=== PATIENT | female | born 1995 | race Caucasian/White ===

== ENCOUNTER 2016-07-26 23:09 | Emergency (ER) | payer BC, OTHER ==
[2016-07-27] MEDS ORDERED: ONDANSETRON 4 MG/2 ML VIAL IVP STA (00:17)
[2016-07-27] MEDS ORDERED: ACETAMINOPHEN IV (For NPO) 1,000 MG in EMPTY BAG 1 BAG IVPB STA (00:18)
--- NOTE | 2016-07-27 00:18 | ED ---
Nausea/Vomiting/Diarrhea HPI - General Chief complaint: Nausea/Vomiting/Diarrhea Stated complaint: Dizzy Time Seen by Provider: 07/27/16 00:01 Source: patient, RN notes reviewed Mode of arrival: ambulatory Limitations: no limitations - History of Present Illness Initial comments: Patient is a 21-year-old female presents emergency room for evaluation of multiple complaints. Patient states she woke up this morning was nauseous and vomited once. Patient states since then and having lower abdominal pain with diarrhea. Patient states over the day she's been having a worsening headache. Patient does state she has a history of migraines. Patient states that she took aspirin with no relief of symptoms. Patient states she still very nauseous. Patient denies changes in vision, ringing in ears or ear pain. Patient denies neck pain. Patient denies fevers or chills. Patient denies chest pain or shortness of breath. Patient states she feels very dizzy and lightheaded whenever she stands up she feels like she is going to fall over. Patient states her last menstrual period was 07/14/16. Patient denies pain or burning during urination, trouble urinating or blood in urine. Patient denies any history of kidney stones. Patient denies any history of abdominal surgeries. - Related Data Home Medications Medication Instructions Recorded Confirmed Pnv with Ca,No.72/Iron/FA 1 tab PO DAILY 03/08/16 03/08/16 [ Plus Tablet] Previous Rx's Medication Instructions Recorded Ibuprofen [Motrin] 600 mg PO Q6HR PRN #30 tab 03/10/16 Ondansetron Odt [Zofran Odt] 4 mg PO Q8HR PRN #12 tab 07/27/16 Allergies Allergy/AdvReac Type Severity Reaction Status Date / Time amoxicillin [Amoxicillin] Allergy Anaphylaxis Verified 07/26/16 23:18 Penicillins Allergy Anaphylaxis Verified 07/26/16 23:18 Review of Systems ROS Statement: Those systems with pertinent positive or pertinent negative responses have been documented in the HPI. ROS Other: All systems not noted in ROS Statement are negative. Past Medical History Past Medical History: No Reported History Additional Past Medical History / Comment(s): Obstetric history: this is her first and she has had care with DR Terrazas starting at 33 weeks. A neg, abs neg, Rub Imm, RPR NR, Hep B neg. Rhogam given 09-18-14. History of Any Multi-Drug Resistant Organisms: None Reported Past Surgical History: No Surgical Hx Reported Past Anesthesia/Blood Transfusion Reactions: No Reported Reaction Past Psychological History: No Psychological Hx Reported Smoking Status: Never smoker Past Alcohol Use History: None Reported Past Drug Use History: None Reported - Past Family History Mother Family Medical History: COPD Additional Family Medical History / Comment(s): fibromyalgia General Exam - General Exam Comments Initial Comments: Laying in exam room, no acute distress. Limitations: no limitations General appearance: alert, in no apparent distress Head exam: Present: atraumatic, normocephalic, normal inspection Eye exam: Present: normal appearance ENT exam: Present: normal exam Neck exam: Present: normal inspection Respiratory exam: Present: normal lung sounds bilaterally. Absent: respiratory distress Cardiovascular Exam: Present: regular rate, normal rhythm, normal heart sounds GI/Abdominal exam: Present: soft, tenderness (LLQ), normal bowel sounds. Absent : distended, guarding, rebound, rigid Extremities exam: Present: normal inspection Back exam: Present: normal inspection Neurological exam: Present: alert, oriented X3, CN II-XII intact, normal gait Psychiatric exam: Present: normal affect, normal mood Skin exam: Present: warm, dry, intact, normal color. Absent: rash Course Vital Signs 07/26/16 07/27/16 07/27/16 23:14 00:53 02:28 Temperature 98.6 F 98.5 F 96.7 F L Pulse Rate 97 97 73 Respiratory 18 20 18 Rate Blood Pressure 119/73 106/67 125/72 O2 Sat by Pulse 99 98 Oximetry Medical Decision Making - Medical Decision Making Patient is a 21-year-old female since emergency room for evaluation nausea and vomiting. Labs show no acute findings. Patient states she is feeling better after medications given. Agreed to send patient home with antinausea medication advised to follow-up with her primary care provider. Patient states she understands everything that was discussed with her. Return parameters discussed. Case discussed with Dr. Gonzalez. - Lab Data Result diagrams: 07/27/16 01:00 07/27/16 01:00 Lab Results 07/27/16 07/27/16 07/27/16 Range/Units 01:00 01:00 01:00 WBC 5.0 (3.8-10.6) k/uL RBC 4.93 (3.80-5.40) m/uL Hgb 12.6 (11.4-16.0) gm/dL Hct 39.6 (34.0-46.0) % MCV 80.3 (80.0-100.0) fL MCH 25.5 (25.0-35.0) pg MCHC 31.8 (31.0-37.0) g/dL RDW 14.4 (11.5-15.5) % Plt Count 185 (150-450) k/uL Neutrophils % 68 % Lymphocytes % 26 % Monocytes % 4 % Eosinophils % 0 % Basophils % 0 % Neutrophils # 3.4 (1.3-7.7) k/uL Lymphocytes # 1.3 (1.0-4.8) k/uL Monocytes # 0.2 (0-1.0) k/uL Eosinophils # 0.0 (0-0.7) k/uL Basophils # 0.0 (0-0.2) k/uL Sodium 141 (137-145) mmol/L Potassium 3.9 (3.5-5.1) mmol/L Chloride 106 (98-107) mmol/L Carbon Dioxide 23 (22-30) mmol/L Anion Gap 12 mmol/L BUN 13 (7-17) mg/dL Creatinine 0.70 (0.52-1.04) mg/dL Est GFR (MDRD) Af Amer >60 (>60 ml/min/1.73 sqM) Est GFR (MDRD) Non-Af >60 (>60 ml/min/1.73 sqM) Glucose 97 (74-99) mg/dL Calcium 9.2 (8.4-10.2) mg/dL Total Bilirubin 0.5 (0.2-1.3) mg/dL AST 19 (14-36) U/L ALT 31 (9-52) U/L Alkaline Phosphatase 41 (38-126) U/L Total Protein 7.2 (6.3-8.2) g/dL Albumin 4.3 (3.5-5.0) g/dL Amylase 53 (30-110) U/L Lipase 142 (23-300) U/L Urine Color Yellow Urine Appearance Clear (Clear) Urine pH 6.0 (5.0-8.0) Ur Specific [place] 1.023 (1.001-1.035) Urine Protein Negative (Negative) Urine Glucose (UA) Negative (Negative) Urine Ketones Negative (Negative) Urine Blood Negative (Negative) Urine Nitrate Negative (Negative) Urine Bilirubin Negative (Negative) Urine Urobilinogen <2.0 (<2.0) mg/dL Ur Leukocyte Esterase Negative (Negative) Urine HCG, Qual (Not Detectd) 07/27/16 Range/Units 01:00 WBC (3.8-10.6) k/uL RBC (3.80-5.40) m/uL Hgb (11.4-16.0) gm/dL Hct (34.0-46.0) % MCV (80.0-100.0) fL MCH (25.0-35.0) pg MCHC (31.0-37.0) g/dL RDW (11.5-15.5) % Plt Count (150-450) k/uL Neutrophils % % Lymphocytes % % Monocytes % % Eosinophils % % Basophils % % Neutrophils # (1.3-7.7) k/uL Lymphocytes # (1.0-4.8) k/uL Monocytes # (0-1.0) k/uL Eosinophils # (0-0.7) k/uL Basophils # (0-0.2) k/uL Sodium (137-145) mmol/L Potassium (3.5-5.1) mmol/L Chloride (98-107) mmol/L Carbon Dioxide (22-30) mmol/L Anion Gap mmol/L BUN (7-17) mg/dL Creatinine (0.52-1.04) mg/dL Est GFR (MDRD) Af Amer (>60 ml/min/1.73 sqM) Est GFR (MDRD) Non-Af (>60 ml/min/1.73 sqM) Glucose (74-99) mg/dL Calcium (8.4-10.2) mg/dL Total Bilirubin (0.2-1.3) mg/dL AST (14-36) U/L ALT (9-52) U/L Alkaline Phosphatase (38-126) U/L Total Protein (6.3-8.2) g/dL Albumin (3.5-5.0) g/dL Amylase (30-110) U/L Lipase (23-300) U/L Urine Color Urine Appearance (Clear) Urine pH (5.0-8.0) Ur Specific [place] (1.001-1.035) Urine Protein (Negative) Urine Glucose (UA) (Negative) Urine Ketones (Negative) Urine Blood (Negative) Urine Nitrate (Negative) Urine Bilirubin (Negative) Urine Urobilinogen (<2.0) mg/dL Ur Leukocyte Esterase (Negative) Urine HCG, Qual Not Detected (Not Detectd) Disposition Clinical Impression: Nausea & vomiting Disposition: HOME SELF-CARE Condition: Good Instructions: Acute Nausea and Vomiting (ED) Additional Instructions: Take Zofran as needed for nausea. Take Tylenol or Motrin as if her headache. Drink plenty of fluids. Please follow up with primary care provider in 1-2 days. If any new symptom arises, symptoms worsen or fever develops, return to ER as soon as possible. Prescriptions: Ondansetron Odt [Zofran Odt] 4 mg PO Q8HR PRN #12 tab PRN Reason: Nausea Referrals: Nader Paula MD [Primary Care Provider] - 1-2 days Time of Disposition: 01:58
[2016-07-27] MEDS: SODIUM CHLORIDE 0.9% 1,000 ML IV ONE ×2 (00:41→00:47)
[2016-07-27 01:13] LABS: Appearance,Urine Clear (Clear); Basophils % (A) 0 %; Bilirubin,Urine Negative (Negative); CH 26.6; CHCM 33.2; Eosinophils % (A) 0 %; Glucose,Urine (UA) Negative (Negative); HCT 39.6 % (34.0-46.0); HDW 2.55; HGB 12.6 gm/dL (11.4-16.0); Ketones,Urine Negative (Negative); Leukocyte Esterase,Urine Negative (Negative); Luc # (Auto) 0.07; Luc % (Auto) 1; Lymphocytes # (A) 1.3 k/uL (1.0-4.8); Lymphocytes % (A) 26 %; MCH 25.5 pg (25.0-35.0); MCHC 31.8 g/dL (31.0-37.0); MCV 80.3 fL (80.0-100.0); Mean Platelet Volume 8.5; Monocytes # (A) 0.2 k/uL (0-1.0); Monocytes % (A) 4 %; Neutrophils # (A) 3.4 k/uL (1.3-7.7); Neutrophils % (A) 68 %; Nitrite,Urine Negative (Negative); Protein,Urine Negative (Negative); RBC 4.93 m/uL (3.80-5.40); RDW 14.4 % (11.5-15.5); Specific Gravity,Urine 1.023 (1.001-1.035); UA Billing (MACRO vs. MICRO) CHEM; Urobilinogen,Urine <2.0 mg/dL (<2.0); WBC (Perox) 5.16
[2016-07-27 01:22] LABS: ALT 31 U/L (9-52); AST 19 U/L (14-36); Alkaline Phosphatase 41 U/L (38-126); Amylase 53 U/L (30-110); Anion Gap 12 mmol/L; Blood Urea Nitrogen 13 mg/dL (7-17); Calcium 9.2 mg/dL (8.4-10.2); Carbon Dioxide 23 mmol/L (22-30); Chloride 106 mmol/L (98-107); Glucose 97 mg/dL (74-99); Non-African American GFR(MDRD) >60 (>60 ml/min/1.73 sqM); Potassium 3.9 mmol/L (3.5-5.1); Sodium 141 mmol/L (137-145); Total Bilirubin 0.5 mg/dL (0.2-1.3); Total Protein 7.2 g/dL (6.3-8.2)
[2016-07-27] MEDS ORDERED: KETOROLAC 30 MG/ML 1 ML VIAL IVP STA (02:01)
[2016-07-27 02:31] VITALS: BP 125/72; PULSE 73; RESP 18; TEMP 96.7
== END 2016-07-27 02:32 | disposition home or self-care (01) ==
LOC: EC 23:09
DX: R11.2 Nausea with vomiting, unspecified (principal); R10.30 Lower abdominal pain, unspecified; Z88.0 Allergy status to penicillin; Z88.1 Allergy status to other antibiotic agents
CPT/HCPCS: 99284; 96365; 96375 ×2; 96361; 36415; 80053; 82150; 83690; 85025; 81003; 81025; J2405; J1885; J0131

== ENCOUNTER → 2017-01-09 | Outpatient (CLI) | payer BC, OTHER ==
[2017-01-09 10:25] LABS: Glucose 68 mg/dL (74-99); Non-African American GFR(MDRD) >60 (>60 ml/min/1.73 sqM)
[2017-01-09 10:57] LABS: Hepatitis B Surface Ag Index 0.04
[2017-01-09 11:24] LABS: CH 28.5; CHCM 33.6; HDW 2.62; MCH 28.4 pg (25.0-35.0); MCHC 33.3 g/dL (31.0-37.0); MCV 85.2 fL (80.0-100.0); Mean Platelet Volume 8.1; RBC 4.22 m/uL (3.80-5.40); RDW 14.3 % (11.5-15.5); WBC 4.6 k/uL (3.8-10.6)
== END | disposition home or self-care (01) ==
LOC: LABWHC1 09:19
PROVIDERS: ATTEND Obstetrics & Gynecology
DX: Z34.80 Encounter for supervision of other normal pregnancy, unspecified trimester (principal); Z3A.00 Weeks of gestation of pregnancy not specified
CPT/HCPCS: 36415; 82565; 82947; 85027; 86762; 86780; 86850; 86900; 86901; 87340

== ENCOUNTER → 2017-02-03 | Outpatient (CLI) | payer BC, OTHER ==
[2017-02-05 09:54] LABS: Alpha Fetoprotein 46.7 ng/mL; B-HCG (M.O.M.) 1.36; Gestational Age (days) 4; Human Chorionic Gonadotropin 44.7 IU/mL; Inhibin A (M.O.M.) 0.49; Insulin-Dependent Diabetes Diabetic; Interpretation SeeBelow; Maternal Age at EDD (Yrs) 22; Smoker No; Unconjugated Estriol (M.O.M.) 1.22
== END | disposition home or self-care (01) ==
LOC: LABWHC1 08:53
PROVIDERS: ATTEND Obstetrics & Gynecology
DX: Z34.82 Encounter for supervision of other normal pregnancy, second trimester (principal); Z3A.00 Weeks of gestation of pregnancy not specified
CPT/HCPCS: 36415; 82105; 82677; 84702; 86336

== ENCOUNTER 2017-03-19 18:49 | Outpatient (CLI) | payer BC, OTHER ==
[2017-03-19 22:46] VITALS: PULSE 96; RESP 18; TEMP 98.2
--- NOTE | 2017-03-20 08:26 | P.MSEPDOC ---
Presenting Problems - Arrival Data Date of Arrival on Unit: 03/19/17 Time of Arrival on Unit: 18:49 Mode of Transport: Ambulatory - Complaint OB-Reason for Admission/Chief Complaint: Pain Comment: gi upset after eating pizza last night. Medical History - Information : 3 Para: 2 Term: 2 : 0 Abortions: Spontaneous or Elective: 0 Number of Living Children: 2 - Gestational Age Expected Date of Delivery: 07/10/17 Gestational Age by TONIA (wks/days): 24 Weeks and 0 Days Review of Systems - Review of Systems Constitutional: No problems Breast: No problems ENT: No problems Cardiovascular: No problems Respiratory: No problems Gastrointestinal: Pain Genitourinary: No problems Musculoskeletal: No problems Skin: No problems Vital Signs - Temperature Temperature: 98.2 F Temperature Source: Oral - Pulse Right Pulse Oximetery Pulse Rate: 96 Pulse Assessment Method: Pulse Oximetry - Respirations Respiratory Rate: 18 Oxygen Delivery Method: Room Air Medical Screen Scoring (Pre) - Cervical Exam Dilation: 0 cm = 0 - Uterine Contractions Frequency: N/A - Maternal Vital Signs Maternal Temperature: N/A Signs of Preeclampsia: N/A Maternal Respirations: N/A - Maternal Trauma Maternal Trauma: N/A - Assessment Baseline FHR: 145 Position: N/A, Non-vertex & not laboring = 3 - Total Score Total Score (Pre): 3 - Level of Risk Level of Risk: Low (0-5) Physician Notification (Pre) - Physician Notified Physician Notified Date: 03/19/17 Physician Notified Time: 20:20 Physician/Practitioner Notifed:: reagan Montoya Order Received: Yes (discharge after ffn and vag exam) Disposition - Disposition OB Disposition: Discharge to home Discharge Date: 03/19/17 Discharge Time: 20:50 I agree with the RN Medical Screening Exam: Yes Risk & Benefit of care provided described in d/c instruction: Yes Diagnosis: FALSE LABOR BEFORE 37 COMPLETED WEEKS OF GEST, SECOND TRI
== END 2017-03-19 20:50 | disposition home or self-care (01) ==
LOC: FBPOP 18:49
PROVIDERS: ATTEND Obstetrics & Gynecology
DX: O47.03 False labor before 37 completed weeks of gestation, third trimester (principal); Z3A.24 24 weeks gestation of pregnancy
CPT/HCPCS: 82731; 99213

== ENCOUNTER → 2017-04-02 | Outpatient (CLI) | payer BC, OTHER ==
[2017-04-02 16:28] LABS: CH 29.6; CHCM 35.2; HCT 35.8 % (34.0-46.0); HGB 12.3 gm/dL (11.4-16.0); MCH 29.1 pg (25.0-35.0); MCHC 34.4 g/dL (31.0-37.0); MCV 84.7 fL (80.0-100.0); Mean Platelet Volume 8.4; RBC 4.23 m/uL (3.80-5.40); RDW 14.2 % (11.5-15.5); WBC 5.9 k/uL (3.8-10.6)
== END | disposition home or self-care (01) ==
LOC: LABWHC1 14:42
PROVIDERS: ATTEND Obstetrics & Gynecology
DX: Z34.82 Encounter for supervision of other normal pregnancy, second trimester (principal); Z3A.00 Weeks of gestation of pregnancy not specified
CPT/HCPCS: 36415; 82950; 85027; 86850

== ENCOUNTER 2017-07-29 06:15 | Emergency (ER) | payer BC, OTHER ==
[2017-07-29 06:38] VITALS: BP 125/81; PULSE 104; RESP 18; TEMP 98.3
--- NOTE | 2017-07-29 07:28 | ED ---
General Adult HPI - General Chief complaint: ENT Stated complaint: right ear pain Time Seen by Provider: 07/29/17 07:22 Source: patient, family, RN notes reviewed Mode of arrival: ambulatory Limitations: no limitations - History of Present Illness Initial comments: Patient is a pleasant 22-year-old female presenting to the emergency department complaining of right ear pain. Symptoms have been present 3 or 4 days. Patient has mild clear rhinorrhea. Occasional cough. No history of chronic ear pain. No fevers. Patient hears popping in her ear with swallowing. - Related Data Previous Rx's Medication Instructions Recorded Azithromycin [Zithromax Z-pack] 250 mg PO DIRECTED #6 tab 07/29/17 Allergies Allergy/AdvReac Type Severity Reaction Status Date / Time amoxicillin [Amoxicillin] Allergy Anaphylaxis Verified 07/29/17 06:38 Penicillins Allergy Anaphylaxis Verified 07/29/17 06:38 Review of Systems ROS Statement: Those systems with pertinent positive or pertinent negative responses have been documented in the HPI. ROS Other: All systems not noted in ROS Statement are negative. Constitutional: Denies: fever Eyes: Denies: eye pain ENT: Reports: ear pain. Denies: throat pain Respiratory: Denies: dyspnea Cardiovascular: Denies: chest pain Endocrine: Denies: fatigue Gastrointestinal: Denies: abdominal pain Genitourinary: Denies: dysuria Musculoskeletal: Denies: back pain Skin: Denies: rash Neurological: Denies: weakness Past Medical History Past Medical History: No Reported History Additional Past Medical History / Comment(s): Obstetric history: this is her first and she has had care with DR Terrazas starting at 33 weeks. A neg, abs neg, Rub Imm, RPR NR, Hep B neg. Rhogam given 09-18-14. History of Any Multi-Drug Resistant Organisms: None Reported Past Surgical History: No Surgical Hx Reported Past Anesthesia/Blood Transfusion Reactions: No Reported Reaction Past Psychological History: No Psychological Hx Reported Smoking Status: Never smoker Past Alcohol Use History: None Reported Past Drug Use History: None Reported - Past Family History Mother Family Medical History: COPD Additional Family Medical History / Comment(s): fibromyalgia General Exam Limitations: no limitations General appearance: alert, in no apparent distress Head exam: Present: atraumatic Eye exam: Present: normal appearance, PERRL ENT exam: Present: normal oropharynx, other (Right TM bulging and mild erythema. No tenderness over the sinuses.) Neck exam: Present: normal inspection Respiratory exam: Present: normal lung sounds bilaterally Cardiovascular Exam: Present: regular rate, normal rhythm Extremities exam: Present: normal inspection Neurological exam: Present: alert Psychiatric exam: Present: normal affect, normal mood Skin exam: Present: normal color Course Vital Signs 07/29/17 06:35 Temperature 98.3 F Pulse Rate 104 H Respiratory 18 Rate Blood Pressure 125/81 O2 Sat by Pulse 97 Oximetry Disposition Clinical Impression: Right otitis media Disposition: HOME SELF-CARE Condition: Stable Instructions: Otitis Media (ED) Additional Instructions: [id number] Tylenol or Motrin as needed. You may also try over-the- counter decongestants. Please follow-up with primary care physician in the next couple days for recheck. Return for hearing loss, bleeding, fevers, worsening symptoms or other concerns. Prescriptions: Azithromycin [Zithromax Z-pack] 250 mg PO DIRECTED #6 tab Referrals: Nader Paula MD [Primary Care Provider] - 1-2 days Time of Disposition: 07:28
== END 2017-07-29 07:30 | disposition home or self-care (01) ==
LOC: EC 06:15
DX: H66.91 Otitis media, unspecified, right ear (principal); R05 Cough; J34.89 Other specified disorders of nose and nasal sinuses; Z88.0 Allergy status to penicillin
CPT/HCPCS: 99282

== ENCOUNTER 2018-09-01 16:57 | Emergency (ER) | payer OTHER ==
[2018-09-01 17:06] VITALS: RESP 18
[2018-09-01 18:29] LABS: Amphetamine Screen,Urine Not Detected (NotDetected); Barbiturate Screen,Urine Not Detected (NotDetected); Benzodiazepines Screen,Urine Not Detected (NotDetected); Cocaine Screen,Urine Not Detected (NotDetected); Methadone Screen, Urine Not Detected (NotDetected); Opiate Screen,Urine Not Detected (NotDetected); Oxycodone Screen, Urine Not Detected (NotDetected); Phencyclidine Screen,Urine Not Detected (NotDetected); Tricyclic Antidepressant,Urine Not Detected (NotDetected); Urn Cannabinoid Scrn Not Detected (NotDetected)
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
[2018-09-01 20:58] VITALS: BP 127/80; PULSE 100; TEMP 98
== END 2018-09-01 20:58 | disposition home or self-care (01) ==
LOC: EC 16:57
DX: F43.21 Adjustment disorder with depressed mood (principal); R45.851 Suicidal ideations; Z79.899 Other long term (current) drug therapy; Z88.0 Allergy status to penicillin
CPT/HCPCS: 80306; 82075; 99285

== ENCOUNTER 2018-11-10 18:57 | Emergency (ER) | payer OTHER ==
[2018-11-10 19:04] VITALS: RESP 18; TEMP 97.5
--- NOTE | 2018-11-10 19:35 | XR ---
EXAMINATION TYPE: XR chest 2V DATE OF EXAM: 11/10/2018 COMPARISON: January 21, 2014 HISTORY: Sore throat TECHNIQUE: Frontal and lateral views of the chest are obtained. FINDINGS: Heart and mediastinum are normal. Lungs are clear. Diaphragm is normal. Bony thorax appear s normal. IMPRESSION: Normal chest. No change.
[2018-11-10] MEDS ORDERED: AZITHROMYCIN 500 MG TAB PO STA (19:48)
--- NOTE | 2018-11-10 19:54 | ED ---
General Adult HPI - General Chief complaint: ENT Stated complaint: Sore throat Time Seen by Provider: 11/10/18 19:00 Source: patient, RN notes reviewed Mode of arrival: ambulatory Limitations: no limitations - History of Present Illness Initial comments: 23-year-old female without any significant past medical history presents to the emergency department for cold symptoms. Patient has had a cough, ear pain, and congestion for the past 3 days. Patient also lost her voice yesterday. Patient denies chest pain or shortness of breath. She does admit that she has some pain along her left shoulder blade when she coughs. Patient did take Mucinex prior to arrival. Patient denies history of asthma or smoking history. States she felt febrile yesterday. Patient has no other complaints at this time including shortness of breath, chest pain, abdominal pain, nausea or vomiting, headache, or visual changes. - Related Data Home Medications Medication Instructions Recorded Confirmed Dextroamphetamine/Amphetamine 20 mg PO DAILY 09/01/18 09/01/18 [Adderall Xr] Previous Rx's Medication Instructions Recorded Azithromycin 250 mg PO DAILY 4 Days #4 tab 11/10/18 Allergies Allergy/AdvReac Type Severity Reaction Status Date / Time amoxicillin [Amoxicillin] Allergy Anaphylaxis Verified 11/10/18 19:01 Penicillins Allergy Anaphylaxis Verified 11/10/18 19:01 Review of Systems ROS Statement: Those systems with pertinent positive or pertinent negative responses have been documented in the HPI. ROS Other: All systems not noted in ROS Statement are negative. Past Medical History Past Medical History: No Reported History Additional Past Medical History / Comment(s): Obstetric history: this is her first and she has had care with DR Terrazas starting at 33 weeks. A neg, abs neg, Rub Imm, RPR NR, Hep B neg. Rhogam given 09-18-14. History of Any Multi-Drug Resistant Organisms: None Reported Past Surgical History: No Surgical Hx Reported Past Anesthesia/Blood Transfusion Reactions: No Reported Reaction Past Psychological History: No Psychological Hx Reported Smoking Status: Never smoker Past Alcohol Use History: None Reported Past Drug Use History: None Reported - Past Family History Mother Family Medical History: COPD Additional Family Medical History / Comment(s): fibromyalgia General Exam Limitations: no limitations General appearance: alert, in no apparent distress Head exam: Present: atraumatic, normocephalic, normal inspection Eye exam: Present: normal appearance, PERRL, EOMI. Absent: scleral icterus, conjunctival injection, periorbital swelling ENT exam: Present: normal exam, mucous membranes moist, normal external ear exam. Absent: normal oropharynx (post nasal drip noted, uvula midline, no tonsillar exudates), TM's normal bilaterally (Right tympanic membranes erythematous and bulging without evidence of perforation. Left tympanic membrane is within normal limits.), other (no tenderness on palpatin of maxiallay or frontal sinuses) Neck exam: Present: normal inspection, full ROM. Absent: tenderness, meningismus, lymphadenopathy Respiratory exam: Present: normal lung sounds bilaterally. Absent: respiratory distress, wheezes, rales, rhonchi, stridor Cardiovascular Exam: Present: regular rate, normal rhythm, normal heart sounds. Absent: systolic murmur, diastolic murmur, rubs, gallop, clicks Neurological exam: Present: alert, oriented X3, CN II-XII intact Psychiatric exam: Present: normal affect, normal mood Course Vital Signs 11/10/18 11/10/18 19:01 19:54 Temperature 97.5 F L Pulse Rate 102 H 95 Respiratory 18 18 Rate Blood Pressure 106/68 114/89 O2 Sat by Pulse 99 98 Oximetry Medical Decision Making - Medical Decision Making 23-year-old well-appearing and healthy female presents to the emergency department for a chief complaint of cough congestion sore throat and ear pain 3 days. No history of asthma or smoking. No shortness of breath or chest pain. Oropharynx nonerythematous, uvula midline, no tonsillar exudates noted bilaterally. Right TM Membrane does appear erythematous and bulging, patient does admit she frequently gets ear infections in the right ear. Patient is ALLERGIC to penicillin, was a started on azithromycin. Patient complaining of some pain in the left shoulder blade only when coughing. This is reproducible on exam. Likely chest wall irritation from coughing given reproducibility with palpation Chest x-ray negative for pneumonia. Influenza is negative. At this t [facility], [facility] patient will be treated for right otitis media. Patient given azithromycin here in the emergency Department if she is ALLERGIC to penicillin and prescription given. Patient also has laryngitis from coughing has her voice is coarse. She will return here she has any worsening symptoms. - Lab Data Lab Results 11/10/18 Range/Units 19:14 Influenza Type A RNA Not Detected (Not Detectd) Influenza Type B (PCR) Not Detected (Not Detectd) Disposition Clinical Impression: Otitis media, Upper respiratory infection Disposition: HOME SELF-CARE Condition: Good Instructions (If sedation given, give patient instructions): Ear Infection (ED), Upper Respiratory Infection (ED) Additional Instructions: Please take azithromycin as directed. Please follow-up with primary care in 1-2 days. Please return to the emergency department if you have any worsening symptoms. Prescriptions: Azithromycin 250 mg PO DAILY 4 Days #4 tab Is patient prescribed a controlled substance at d/c from ED?: No Referrals: Nader Paula MD [Primary Care Provider] - 1-2 days Time of Disposition: 19:52
[2018-11-10 19:55] VITALS: BP 114/89; PULSE 95
== END 2018-11-10 20:11 | disposition home or self-care (01) ==
LOC: EC 18:57
DX: J06.9 Acute upper respiratory infection, unspecified (principal); H66.91 Otitis media, unspecified, right ear; M25.512 Pain in left shoulder; Z79.899 Other long term (current) drug therapy; Z88.0 Allergy status to penicillin
CPT/HCPCS: 71046; 87502; 99283

== ENCOUNTER 2019-02-26 21:00 | Emergency (ER) | payer OTHER ==
[2019-02-26 21:08] VITALS: TEMP 98.4
--- NOTE | 2019-02-26 21:29 | ED ---
General Adult HPI - General Chief complaint: Urogenital Stated complaint: kidney pain/poss UTI Time Seen by Provider: 02/26/19 21:06 Source: patient Mode of arrival: ambulatory Limitations: no limitations - History of Present Illness Initial comments: Dictation was produced using G[employer] dictation software. please excuse any grammatical, word or spelling errors. Chief Complaint: Patient is a 23-year-old femalepast medical history presents with right flank pain and right lower quadrant abdominal pain. History of Present Illness: Patient's 23-year-old female presents today with right lower quadrant abdominal and right flank pain. Patient states she's had these symptoms for approximate 7 weeks. Patient noticed that her urine is slightly brownish tinged. She does complain of some mild dysuria. She believes that she has a urinary tract infection. Patient has intrauterine device. She denies any chance of being . Denies any fevers or complaints of some mild nausea. She states that her symptoms got worse today. At first it was slight episodic now it is constant and more severe. Denies any constitutional symptoms. Denies that her pain was never in the periumbilical region. Patient denies any history of kidney stones. Denies any history of abdominal surgery. No vaginal discharge or vaginal bleeding. The ROS documented in this emergency department record has been reviewed and confirmed by me. Those systems with pertinent positive or negative responses have been documented in the HPI. All other systems are other negative and/or noncontributory. PHYSICAL EXAM: General Impression: Alert and oriented x3, not in acute distress HEENT: Normocephalic atraumatic, extra-ocular movements intact, pupils equal and reactive to light bilaterally, mucous membranes moist. Cardiovascular: Heart regular rate and rhythm, S1&S2 audible, no murmurs, rubs or gallops Chest: Lungs clear to auscultation bilaterally, no rhonchi, no wheeze, no rales Abdomen: Bowel sounds present, abdomen soft, tenderness to palpation of McBurney's point, referred pain to the right lower quadrant with palpation to th e left, positive CVA tenderness Musculoskeletal: Pulses present and equal in all extremities, no peripheral edema Motor: no focal deficits noted Neurological: CN II-XII grossly intact, no focal motor or sensory deficits noted Skin: Intact with no visualized rashes Psych: Normal affect and mood ED course:23 yo Old female presents with right-sided flank pain and right lower quadrant abdominal pain. As upon arrival are within acceptable limits. Patient's well-appearing. Physical examination is concerning for nephrolithiasis versus pyelonephritis versus is ovarian torsion versus is acute appendicitis. Lab to evaluation obtained. CBC, metabolic panel unremarkable. Urinalysis consistent with urinary tract infection CT does not show appendicitis. No large ovarian mass. No findings of pyelonephritis on CT imaging. Clinical presentation consistent with urinary tract infection concern for pyelonephritis. She is given 1 g of ceftriaxone here. Patient prescription for Keflex. She is well-appearing and has stable vital signs. She is able to be discharged with strict return precautions. Patient told to return to emergency Department with any constitutional symptoms or worsening pain. Patient understandable agreeable. - Related Data Home Medications Medication Instructions Recorded Confirmed Dextroamphetamine/Amphetamine 20 mg PO DAILY 09/01/18 02/26/19 [Adderall Xr] Previous Rx's Medication Instructions Recorded Cephalexin [Keflex] 500 mg PO Q6HR 10 Days #40 cap 02/26/19 Allergies Allergy/AdvReac Type Severity Reaction Status Date / Time amoxicillin [Amoxicillin] Allergy Anaphylaxis Verified 02/26/19 21:41 Penicillins Allergy Anaphylaxis Verified 02/26/19 21:41 Review of Systems ROS Statement: Those systems with pertinent positive or pertinent negative responses have been documented in the HPI. ROS Other: All systems not noted in ROS Statement are negative. Past Medical History Past Medical History: No Reported History Additional Past Medical History / Comment(s): Obstetric history: this is her first and she has had care with DR Terrazas starting at 33 weeks. A neg, abs neg, Rub Imm, RPR NR, Hep B neg. Rhogam given 09-18-14. History of Any Multi-Drug Resistant Organisms: None Reported Past Surgical History: No Surgical Hx Reported Past Anesthesia/Blood Transfusion Reactions: No Reported Reaction Past Psychological History: No Psychological Hx Reported Smoking Status: Never smoker Past Alcohol Use History: None Reported Past Drug Use History: None Reported - Past Family History Mother Family Medical History: COPD Additional Family Medical History / Comment(s): fibromyalgia General Exam Limitations: no limitations Course Vital Signs 02/26/19 21:05 Temperature 98.4 F Pulse Rate 77 Respiratory 18 Rate Blood Pressure 106/74 O2 Sat by Pulse 99 Oximetry Medical Decision Making - Lab Data Result diagrams: 02/26/19 21:26 02/26/19 21:26 Lab Results 02/26/19 02/26/19 02/26/19 Range/Units 21:26 21:26 21:45 WBC 5.9 (3.8-10.6) k/uL RBC 4.67 (3.80-5.40) m/uL Hgb 13.6 (11.4-16.0) gm/dL Hct 40.0 (34.0-46.0) % MCV 85.6 (80.0-100.0) fL MCH 29.2 (25.0-35.0) pg MCHC 34.1 (31.0-37.0) g/dL RDW 12.8 (11.5-15.5) % Plt Count 229 (150-450) k/uL Neutrophils % 57 % Lymphocytes % 32 % Monocytes % 6 % Eosinophils % 4 % Basophils % 0 % Neutrophils # 3.4 (1.3-7.7) k/uL Lymphocytes # 1.9 (1.0-4.8) k/uL Monocytes # 0.4 (0-1.0) k/uL Eosinophils # 0.2 (0-0.7) k/uL Basophils # 0.0 (0-0.2) k/uL Sodium 141 (137-145) mmol/L Potassium 4.1 (3.5-5.1) mmol/L Chloride 105 (98-107) mmol/L Carbon Dioxide 26 (22-30) mmol/L Anion Gap 10 mmol/L BUN 14 (7-17) mg/dL Creatinine 0.68 (0.52-1.04) mg/dL Est GFR (CKD-EPI)AfAm >90 (>60 ml/min/1.73 sqM) Est GFR (CKD-EPI)NonAf >90 (>60 ml/min/1.73 sqM) Glucose 90 (74-99) mg/dL Calcium 9.5 (8.4-10.2) mg/dL Urine Color Urine Appearance (Clear) Urine pH (5.0-8.0) Ur Specific [place] (1.001-1.035) Urine Protein (Negative) Urine Glucose (UA) (Negative) Urine Ketones (Negative) Urine Blood (Negative) Urine Nitrite (Negative) Urine Bilirubin (Negative) Urine Urobilinogen (<2.0) mg/dL Ur Leukocyte Esterase (Negative) Urine RBC (0-5) /hpf Urine WBC (0-5) /hpf Ur Squamous Epith Cells (0-4) /hpf Urine Mucus (None) /hpf Urine HCG, Qual Not Detected (Not Detectd) 02/26/19 Range/Units 21:45 WBC (3.8-10.6) k/uL RBC (3.80-5.40) m/uL Hgb (11.4-16.0) gm/dL Hct (34.0-46.0) % MCV (80.0-100.0) fL MCH (25.0-35.0) pg MCHC (31.0-37.0) g/dL RDW (11.5-15.5) % Plt Count (150-450) k/uL Neutrophils % % Lymphocytes % % Monocytes % % Eosinophils % % Basophils % % Neutrophils # (1.3-7.7) k/uL Lymphocytes # (1.0-4.8) k/uL Monocytes # (0-1.0) k/uL Eosinophils # (0-0.7) k/uL Basophils # (0-0.2) k/uL Sodium (137-145) mmol/L Potassium (3.5-5.1) mmol/L Chloride (98-107) mmol/L Carbon Dioxide (22-30) mmol/L Anion Gap mmol/L BUN (7-17) mg/dL Creatinine (0.52-1.04) mg/dL Est GFR (CKD-EPI)AfAm (>60 ml/min/1.73 sqM) Est GFR (CKD-EPI)NonAf (>60 ml/min/1.73 sqM) Glucose (74-99) mg/dL Calcium (8.4-10.2) mg/dL Urine Color Yellow Urine Appearance Cloudy H (Clear) Urine pH 6.0 (5.0-8.0) Ur Specific [place] 1.016 (1.001-1.035) Urine Protein Trace H (Negative) Urine Glucose (UA) Negative (Negative) Urine Ketones Negative (Negative) Urine Blood Trace H (Negative) Urine Nitrite Negative (Negative) Urine Bilirubin Negative (Negative) Urine Urobilinogen <2.0 (<2.0) mg/dL Ur Leukocyte Esterase Large H (Negative) Urine RBC 5 (0-5) /hpf Urine WBC 116 H (0-5) /hpf Ur Squamous Epith Cells 3 (0-4) /hpf Urine Mucus Rare H (None) /hpf Urine HCG, Qual (Not Detectd) Disposition Clinical Impression: Pyelonephritis Disposition: HOME SELF-CARE Condition: Good Instructions (If sedation given, give patient instructions): Urinary Tract Infection in Women (ED) Prescriptions: Cephalexin [Keflex] 500 mg PO Q6HR 10 Days #40 cap Is patient prescribed a controlled substance at d/c from ED?: No Referrals: Nader Paula MD [Primary Care Provider] - 1-2 days Time of Disposition: 23:25
[2019-02-26 21:46] LABS: Basophils % (A) 0 %; Eosinophils # (A) 0.2 k/uL (0-0.7); Eosinophils % (A) 4 %; HGB 13.6 gm/dL (11.4-16.0); Lymphocytes # (A) 1.9 k/uL (1.0-4.8); Lymphocytes % (A) 32 %; MCH 29.2 pg (25.0-35.0); MCHC 34.1 g/dL (31.0-37.0); MCV 85.6 fL (80.0-100.0); Mean Platelet Volume 7.6; Monocytes # (A) 0.4 k/uL (0-1.0); Monocytes % (A) 6 %; Neutrophils # (A) 3.4 k/uL (1.3-7.7); Neutrophils % (A) 57 %; Platelet Count 229 k/uL (150-450); RBC 4.67 m/uL (3.80-5.40); RDW 12.8 % (11.5-15.5); WBC 5.9 k/uL (3.8-10.6)
[2019-02-26 21:53] LABS: African American GFR (CKD) >90 (>60 ml/min/1.73 sqM); Anion Gap 10 mmol/L; Blood Urea Nitrogen 14 mg/dL (7-17); Calcium 9.5 mg/dL (8.4-10.2); Carbon Dioxide 26 mmol/L (22-30); Chloride 105 mmol/L (98-107); Glucose 90 mg/dL (74-99); Potassium 4.1 mmol/L (3.5-5.1); Sodium 141 mmol/L (137-145)
[2019-02-26 22:10] LABS: Appearance,Urine Cloudy (Clear); Bilirubin,Urine Negative (Negative); Blood,Urine Trace (Negative); Color,Urine Yellow; Glucose,Urine (UA) Negative (Negative); Ketones,Urine Negative (Negative); Leukocyte Esterase,Urine Large (Negative); Mucus,Urine Rare /hpf; Nitrite,Urine Negative (Negative); Protein,Urine Trace (Negative); RBC,Urine 5 /hpf (0-5); Specific Gravity,Urine 1.016 (1.001-1.035); Squamous Epithelial Cell,Urine 3 /hpf (0-4); Urobilinogen,Urine <2.0 mg/dL (<2.0); WBC,Urine 116 /hpf (0-5)
--- NOTE | 2019-02-26 23:20 | CT ---
EXAM: CT Abdomen and Pelvis With Intravenous Contrast CLINICAL HISTORY: Pain TECHNIQUE: Axial computed tomography images of the abdomen and pelvis with intravenous contrast. CTDI is 0.085, 0.75, 4.4, 3.8 mGy and DLP is 354.2 mGy-cm. This CT exam was performed using one or more of the following dose reduction techniques: automated exposure control, adjustment of the mA and/or kV according to patient size, and/or use of iterative reconstruction technique. COMPARISON: No relevant prior studies available. FINDINGS: Lung bases: Unremarkable. No mass. No consolidation. ABDOMEN: Liver: Decreased attenuation of the liver which may be phase of IV contrast versus hepatic steatosis. Gallbladder and bile ducts: Unremarkable. Pancreas: Unremarkable. Spleen: Unremarkable. Adrenals: Unremarkable. Kidneys and ureters: Unremarkable. Stomach and bowel: Unremarkable. PELVIS: Appendix: Appendix is unremarkable. Bladder: Unremarkable. Reproductive: IUD noted within the endometrium. ABDOMEN and PELVIS: Intraperitoneal space: Trace free fluid the pelvis, likely physiologic. Bones/joints: No acute fracture. No dislocation. Soft tissues: Unremarkable. Vasculature: Unremarkable. No abdominal aortic aneurysm. Lymph nodes: Unremarkable. IMPRESSION: No acute findings.
[2019-02-26] MEDS ORDERED: cefTRIAXone IN SWFI 1,000 MG/10 ML SYRINGE IVP STA (23:23)
[2019-02-26 23:45] VITALS: BP 112/79; PULSE 85; RESP 20
== END 2019-02-26 23:51 | disposition home or self-care (01) ==
LOC: EC 21:00
DX: N12 Tubulo-interstitial nephritis, not specified as acute or chronic (principal); Z88.0 Allergy status to penicillin
CPT/HCPCS: 36415; 80048; 85025; 81001; 81025; 87086; 74177; 99284; 96374; J0696; Q9967

== ENCOUNTER 2020-05-11 19:33 | Emergency (ER) | payer OTHER ==
[2020-05-11 19:42] VITALS: BP 113/81; PULSE 107; RESP 18; TEMP 98.7
--- NOTE | 2020-05-11 20:19 | ED ---
ENT HPI - General Chief complaint: ENT Stated complaint: Jaw pain Time Seen by Provider: 05/11/20 19:43 Source: patient Mode of arrival: ambulatory Limitations: no limitations - History of Present Illness Initial comments: Patient is a 24-year-old female presenting to the emergency Department with complaints of a painful bump on the underneath of her right jaw line that has been increasing over the past week. Patient denies any Fever, chills, congestion, cough. She denies any dental pain. She states it feels like a "small bump underneath the jaw line." She states she noticed a get a little bit red today and is very painful to the touch. She states it hurts to open her mouth all the way. She denies any injuries or trauma to her jaw. She states it does not hurt to chew food. She denies any ear pain, sore throat, sinus congestion. She has no further complaints at this time. Upon arrival to the ER, her vital signs are stable. - Related Data Home Medications Medication Instructions Recorded Confirmed Dextroamphetamine/Amphetamine 20 mg PO DAILY 09/01/18 02/26/19 [Adderall Xr] Previous Rx's Medication Instructions Recorded Cephalexin [Keflex] 500 mg PO Q6HR 10 Days #40 cap 02/26/19 Allergies Allergy/AdvReac Type Severity Reaction Status Date / Time amoxicillin [Amoxicillin] Allergy Anaphylaxis Verified 05/11/20 19:41 Penicillins Allergy Anaphylaxis Verified 05/11/20 19:41 Review of Systems ROS Statement: Those systems with pertinent positive or pertinent negative responses have been documented in the HPI. ROS Other: All systems not noted in ROS Statement are negative. Past Medical History Past Medical History: No Reported History Additional Past Medical History / Comment(s): Obstetric history: this is her first and she has had care with DR Terrazas starting at 33 weeks. A neg, abs neg, Rub Imm, RPR NR, Hep B neg. Rhogam given 09-18-14. History of Any Multi-Drug Resistant Organisms: None Reported Past Surgical History: No Surgical Hx Reported Past Anesthesia/Blood Transfusion Reactions: No Reported Reaction Past Psychological History: No Psychological Hx Reported Smoking Status: Never smoker Past Alcohol Use History: None Reported Past Drug Use History: None Reported - Past Family History Mother Family Medical History: COPD Additional Family Medical History / Comment(s): fibromyalgia General Exam - General Exam Comments Initial Comments: GENERAL: Patient is well-developed and well-nourished. Patient is nontoxic and in no acute distress. HEAD: Atraumatic, normocephalic. EYES: Pupils equal round and reactive to light, extraocular movements intact, sclera anicteric, conjunctiva are normal. Eyelids were unremarkable. ENT: TMs normal, nares patent, oropharynx clear without exudates. Moist mucous membranes. NECK: Normal range of motion,. Patient has one enlarged right-sided submandibular lymph node that is tender to the touch. There is very, mild erythema present. Patient does have full jaw range of motion however painful at the end range. LUNGS: Unlabored respirations. Breath sounds clear to auscultation bilaterally and equal. No wheezes rales or rhonchi. HEART: Regular rate and rhythm without murmurs, rubs or gallops. ABDOMEN: Soft, nontender, normoactive bowel sounds. No guarding, no rebound. No masses appreciated. : Deferred MUSCULOSKELETAL: Normal extremities with adequate strength and normal range of motion, no pitting or edema. No clubbing or cyanosis. NEUROLOGICAL: Patient is alert and oriented x 3. Motor and sensory are also intact. Symmetrical smile. Normal speech, normal gait. PSYCH: Normal mood, normal affect. SKIN: Warm, Dry, normal turgor, no rashes or lesions noted. Limitations: no limitations Course Vital Signs 05/11/20 19:40 Temperature 98.7 F Pulse Rate 107 H Respiratory 18 Rate Blood Pressure 113/81 O2 Sat by Pulse 100 Oximetry Medical Decision Making - Medical Decision Making Patient is a 24-year-old female here for a painful bump underneath her right jaw has been increasing for 1 week. Her exam is consistent with an inflamed submandibular lymph node versus possible salivary gland inflammation/blockage. I recommended anti-inflammatories, heat to the area, sour candies. She states she does have an appointment with her dentist in 2 days secondary to her wisdom teeth. She also needs to follow up with her PCP. Patient is agreement with this plan of care. She is stable for discharge. Disposition Clinical Impression: Lymphadenopathy, submandibular Disposition: HOME SELF-CARE Condition: Stable Instructions (If sedation given, give patient instructions): Lymphadenopathy (ED) Additional Instructions: Please return to the Emergency Department if symptoms worsen or any other concerns. Exam today reveals a possible enlarged lymph node versus a possible blocked salivary gland Continue with ibuprofen, heat/ice to the area, sour candys Follow-up with dentist and PCP. Is patient prescribed a controlled substance at d/c from ED?: No Referrals: Nader Paula MD [REFERRING] - 1-2 days
== END 2020-05-11 20:26 | disposition home or self-care (01) ==
LOC: EC 19:33
DX: R59.0 Localized enlarged lymph nodes (principal); Z79.899 Other long term (current) drug therapy; Z88.0 Allergy status to penicillin
CPT/HCPCS: 99283

== ENCOUNTER 2020-05-22 23:00 | Emergency (ER) | payer OTHER ==
[2020-05-22 23:08] VITALS: BP 116/79; PULSE 104; RESP 18; TEMP 99
[2020-05-22 23:33] LABS: Appearance,Urine Cloudy (Clear); Bacteria,Urine Occasional /hpf; Bilirubin,Urine Negative (Negative); Blood,Urine Large (Negative); Color,Urine Yellow; Glucose,Urine (UA) Negative (Negative); Ketones,Urine Negative (Negative); Leukocyte Esterase,Urine Large (Negative); Mucus,Urine Rare /hpf; Nitrite,Urine Negative (Negative); Protein,Urine 1+ (Negative); RBC,Urine >182 /hpf (0-5); Specific Gravity,Urine 1.021 (1.001-1.035); Squamous Epithelial Cell,Urine <1 /hpf (0-4); Urobilinogen,Urine <2.0 mg/dL (<2.0); WBC,Urine >182 /hpf (0-5)
[2020-05-22] MEDS ORDERED: PHENAZOPYRIDINE 100 MG TAB PO STA (23:36)
--- NOTE | 2020-05-22 23:43 | ED ---
General Adult HPI - General Chief complaint: Abdominal Pain Stated complaint: possible UTI Time Seen by Provider: 05/22/20 23:15 Source: patient Mode of arrival: ambulatory Limitations: no limitations - History of Present Illness Initial comments: 24-year-old female presents to emergency department this evening with complaints of urinary frequency and burning 3 days. Patient states she frequently experiences urinary tract infections and suspects that's what this is. She denies fever, chills, nausea, vomiting, and back pain. Denies history of diab etes. Denies any abnormal vaginal bleeding or discharge. Denies concern for or STI. Patient denies any recent rash, cough, shortness of breath, chest pain, diarrhea, constipation, numbness, tingling, dizziness, weakness, hematuria, headache, visual changes, or any other complaints. - Related Data Home Medications Medication Instructions Recorded Confirmed Dextroamphetamine/Amphetamine 20 mg PO DAILY 09/01/18 02/26/19 [Adderall Xr] Previous Rx's Medication Instructions Recorded Cephalexin [Keflex] 500 mg PO Q6HR 10 Days #40 cap 02/26/19 Phenazopyridine [Pyridium] 200 mg PO TID #18 tablet 05/23/20 Sulfamethoxazole/Trimethoprim 1 each PO BID #20 tablet 05/23/20 [Bactrim DS 800-160 mg] Allergies Allergy/AdvReac Type Severity Reaction Status Date / Time amoxicillin [Amoxicillin] Allergy Anaphylaxis Verified 05/22/20 23:08 Penicillins Allergy Anaphylaxis Verified 05/22/20 23:08 Review of Systems ROS Statement: Those systems with pertinent positive or pertinent negative responses have been documented in the HPI. ROS Other: All systems not noted in ROS Statement are negative. Past Medical History Past Medical History: No Reported History Additional Past Medical History / Comment(s): Obstetric history: this is her first and she has had care with DR Terrazas starting at 33 weeks. A neg, abs neg, Rub Imm, RPR NR, Hep B neg. Rhogam given 09-18-14. History of Any Multi-Drug Resistant Organisms: None Reported Past Surgical History: No Surgical Hx Reported Past Anesthesia/Blood Transfusion Reactions: No Reported Reaction Past Psychological History: No Psychological Hx Reported Smoking Status: Never smoker Past Alcohol Use History: None Reported Past Drug Use History: None Reported - Past Family History Mother Family Medical History: COPD Additional Family Medical History / Comment(s): fibromyalgia General Exam Limitations: no limitations (Well-developed, well-nourished female in no acute distress. Initial temperature 99.0F, pulse 104, respirations 18, blood pressure 116/79, pulse ox 99% on room air.) General appearance: alert, in no apparent distress Respiratory exam: Present: normal lung sounds bilaterally. Absent: respiratory distress, wheezes, rales, rhonchi, stridor Cardiovascular Exam: Present: regular rate, normal rhythm, normal heart sounds. Absent: systolic murmur, diastolic murmur, rubs, gallop, clicks GI/Abdominal exam: Present: soft, tenderness (Right lower quadrant and suprapubic tenderness upon palpation.), normal bowel sounds. Absent: distended, guarding, rebound, rigid Back exam: Present: normal inspection. Absent: CVA tenderness (R), CVA tenderness (L) Neurological exam: Present: alert, oriented X3, CN II-XII intact Psychiatric exam: Present: normal affect, normal mood Skin exam: Present: warm, dry, intact, normal color. Absent: rash Course Vital Signs 05/22/20 23:06 Temperature 99.0 F Pulse Rate 104 H Respiratory 18 Rate Blood Pressure 116/79 O2 Sat by Pulse 99 Oximetry Medical Decision Making - Medical Decision Making 24-year-old female presents emergency department this evening with complaints of urinary frequency and dysuria; states she has frequent UTIs. Denies fever, chills, nausea, and vomiting; no CVA tenderness. Urinalysis was positive for large amount of blood and leukocyte estrase. Bactrim and Pyridium given to treat UTI. Patient encouraged to increase fluids, take full course of antibiotic, and to follow-up with her primary care provider in the next 1-2 days for recheck. Return parameters were discussed. Patient verbalizes understanding and agrees with plan. - Lab Data Lab Results 05/22/20 05/22/20 Range/Units 23:18 23:18 Urine Color Yellow Urine Appearance Cloudy H (Clear) Urine pH 7.0 (5.0-8.0) Ur Specific [place] 1.021 (1.001-1.035) Urine Protein 1+ H (Negative) Urine Glucose (UA) Negative (Negative) Urine Ketones Negative (Negative) Urine Blood Large H (Negative) Urine Nitrite Negative (Negative) Urine Bilirubin Negative (Negative) Urine Urobilinogen <2.0 (<2.0) mg/dL Ur Leukocyte Esterase Large H (Negative) Urine RBC >182 H (0-5) /hpf Urine WBC >182 H (0-5) /hpf Urine WBC Clumps Few H (None) /hpf Ur Squamous Epith Cells <1 (0-4) /hpf Urine Bacteria Occasional H (None) /hpf Urine Mucus Rare H (None) /hpf Urine HCG, Qual Not Detected (Not Detectd) Disposition Clinical Impression: Urinary tract infection Disposition: HOME SELF-CARE Condition: Good Instructions (If sedation given, give patient instructions): Urinary Tract Infection in Women (ED) Additional Instructions: Drink lots of fluids. Use Pyridium/Azo as needed for symptom relief. Take medications as directed. Complete antibiotic prescription in full. Follow-up with your primary care physician for recheck in 1-2 days. Return to the emergency department immediately for any new, worsening, or concerning symptoms. Prescriptions: Sulfamethoxazole/Trimethoprim [Bactrim DS 800-160 mg] 1 each PO BID #20 tablet Phenazopyridine [Pyridium] 200 mg PO TID #18 tablet Is patient prescribed a controlled substance at d/c from ED?: No Referrals: Nader Paula MD [Primary Care Provider] - 1-2 days Time of Disposition: 00:12
[2020-05-23] MEDS ORDERED: SULFAMETH-TMP DS STARTER PACK 2 TAB BTL PO STA (00:10)
== END 2020-05-23 00:33 | disposition home or self-care (01) ==
LOC: EC 23:00
DX: N39.0 Urinary tract infection, site not specified (principal); Z79.899 Other long term (current) drug therapy; Z88.0 Allergy status to penicillin
CPT/HCPCS: 81001; 81025; 87086; 99284

== ENCOUNTER 2020-10-06 15:14 | Emergency (ER) | payer OTHER ==
[2020-10-06 15:30] VITALS: BP 110/75; PULSE 101; RESP 18; TEMP 98.3
[2020-10-06 16:18] LABS: Appearance,Urine Clear (Clear); Bilirubin,Urine Negative (Negative); Blood,Urine Negative (Negative); Color,Urine Light Yellow; Glucose,Urine (UA) Negative (Negative); Ketones,Urine Negative (Negative); Leukocyte Esterase,Urine Negative (Negative); Nitrite,Urine Negative (Negative); PH, Urine 5.5 (5.0-8.0); Protein,Urine Negative (Negative); Specific Gravity,Urine 1.023 (1.001-1.035); Urobilinogen,Urine <2.0 mg/dL (<2.0)
[2020-10-06] MEDS ORDERED: DOXYCYCLINE 100 MG CAP PO STA (16:47)
[2020-10-06] MEDS ORDERED: cefTRIAXone 250 MG VIAL IM STA (16:47)
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
== END 2020-10-06 17:37 | disposition home or self-care (01) ==
LOC: EC 15:14
DX: N76.0 Acute vaginitis (principal)
CPT/HCPCS: 81003; 81025; 99284; 96372; J0696

== ENCOUNTER 2020-12-13 11:41 | Emergency (ER) | payer OTHER ==
[2020-12-13] MEDS ORDERED: KETOROLAC 15 MG/ML 1 ML VIAL IVP STA (12:12)
[2020-12-13] MEDS ORDERED: SODIUM CHLORIDE 0.9% 1,000 ML IV STA (12:12)
--- NOTE | 2020-12-13 12:38 | ED ---
General Adult HPI - General Chief complaint: Abdominal Pain Stated complaint: poss UTI Time Seen by Provider: 12/13/20 12:06 Source: patient, RN notes reviewed Mode of arrival: ambulatory Limitations: no limitations - History of Present Illness Initial comments: Patient is a 25-year-old female that presents to the emergency department with urinary tract infection symptoms such as frequency, dysuria for the past week. She notes that she's been taking [id number] Azo but it has not been helping with the symptoms. She did not follow-up with primary care for initial evaluation and came straight to the emergency department. She notes that she d oes have some tenderness in her suprapubic region red over her bladder and nowhere else. She notes that she hasn't been drinking water because it hurts to urinate. She was in mild pain while laying in bed during the exam and interview. She denied any chest pain shortness of breath headache nausea vomiting diarrhea constipation fever fatigue chills hematuria. - Related Data Home Medications Medication Instructions Recorded Confirmed Dextroamphetamine/Amphetamine 20 mg PO DAILY 09/01/18 02/26/19 [Adderall Xr] Previous Rx's Medication Instructions Recorded Cephalexin [Keflex] 500 mg PO Q6HR 10 Days #40 cap 02/26/19 Phenazopyridine [Pyridium] 200 mg PO TID #18 tablet 05/23/20 Sulfamethoxazole/Trimethoprim 1 each PO BID #20 tablet 05/23/20 [Bactrim DS 800-160 mg] Doxycycline Monohydrate [Monodox] 100 mg PO Q12HR #20 cap 10/06/20 Nitrofurantoin Monohyd/M-Cryst 100 mg PO Q12HR #14 cap 12/13/20 [Macrobid] Allergies Allergy/AdvReac Type Severity Reaction Status Date / Time amoxicillin [Amoxicillin] Allergy Anaphylaxis Verified 12/13/20 12:04 Penicillins Allergy Anaphylaxis Verified 12/13/20 12:04 Review of Systems ROS Statement: Those systems with pertinent positive or pertinent negative responses have been documented in the HPI. ROS Other: All systems not noted in ROS Statement are negative. Past Medical History Past Medical History: No Reported History Additional Past Medical History / Comment(s): Obstetric history: this is her first and she has had care with DR Terrazas starting at 33 weeks. A neg, abs neg, Rub Imm, RPR NR, Hep B neg. Rhogam given 2-27-15. History of Any Multi-Drug Resistant Organisms: None Reported Past Surgical History: No Surgical Hx Reported Past Anesthesia/Blood Transfusion Reactions: No Reported Reaction Past Psychological History: No Psychological Hx Reported Smoking Status: Never smoker Past Alcohol Use History: None Reported Past Drug Use History: None Reported - Past Family History Mother Family Medical History: COPD Additional Family Medical History / Comment(s): fibromyalgia General Exam Limitations: no limitations General appearance: alert, in no apparent distress Head exam: Present: atraumatic, normocephalic, normal inspection Eye exam: Present: normal appearance, PERRL, EOMI. Absent: scleral icterus, conjunctival injection, periorbital swelling Neck exam: Present: normal inspection Respiratory exam: Present: normal lung sounds bilaterally. Absent: respiratory distress, wheezes, rales, rhonchi, stridor Cardiovascular Exam: Present: regular rate, normal rhythm, normal heart sounds. Absent: systolic murmur, diastolic murmur, rubs, gallop, clicks GI/Abdominal exam: Present: soft, tenderness (Suprapubic region), normal bowel sounds. Absent: distended, guarding, rebound, rigid Extremities exam: Present: normal inspection, full ROM, normal capillary refill. Absent: tenderness, pedal edema, joint swelling, calf tenderness Neurological exam: Present: alert, oriented X3, CN II-XII intact Psychiatric exam: Present: normal affect, normal mood Skin exam: Present: warm, dry, intact, normal color. Absent: rash Course Vital Signs 12/13/20 12:00 Temperature 97.8 F Respiratory 94 H Rate Blood Pressure 104/69 O2 Sat by Pulse 98 Oximetry Medical Decision Making - Medical Decision Making 5-year-old female with urinary tract infection symptoms such as dysuria and frequency. Labs, KUB, 1 L normal saline, 15 mg of Toradol ordered. Labs: Large amount of blood in urine, greater than 182 red blood cells and white blood cells. Patient will be sent home with antibiotics. Case discussed with Dr. Stein, patient can discharge home. - Lab Data Result diagrams: 12/13/20 12:30 12/13/20 12:30 Lab Results 12/13/20 12/13/20 12/13/20 Range/Units 12:30 12:30 12:30 WBC 8.5 (3.8-10.6) k/uL RBC 4.67 (3.80-5.40) m/uL Hgb 13.9 (11.4-16.0) gm/dL Hct 39.9 (34.0-46.0) % MCV 85.5 (80.0-100.0) fL MCH 29.8 (25.0-35.0) pg MCHC 34.9 (31.0-37.0) g/dL RDW 12.7 (11.5-15.5) % Plt Count 219 (150-450) k/uL MPV 8.3 Neutrophils % 83 % Lymphocytes % 12 % Monocytes % 4 % Eosinophils % 1 % Basophils % 0 % Neutrophils # 7.1 (1.3-7.7) k/uL Lymphocytes # 1.0 (1.0-4.8) k/uL Monocytes # 0.3 (0-1.0) k/uL Eosinophils # 0.1 (0-0.7) k/uL Basophils # 0.0 (0-0.2) k/uL Sodium (137-145) mmol/L Potassium (3.5-5.1) mmol/L Chloride (98-107) mmol/L Carbon Dioxide (22-30) mmol/L Anion Gap mmol/L BUN (7-17) mg/dL Creatinine (0.52-1.04) mg/dL Est GFR (CKD-EPI)AfAm (>60 ml/min/1.73 sqM) Est GFR (CKD-EPI)NonAf (>60 ml/min/1.73 sqM) Glucose (74-99) mg/dL Calcium (8.4-10.2) mg/dL Total Bilirubin (0.2-1.3) mg/dL AST (14-36) U/L ALT (4-34) U/L Alkaline Phosphatase (38-126) U/L Total Protein (6.3-8.2) g/dL Albumin (3.5-5.0) g/dL Amylase (30-110) U/L Lipase (23-300) U/L Urine Color Light Red Urine Appearance Turbid H (Clear) Urine pH 5.5 (5.0-8.0) Ur Specific [place] 1.025 (1.001-1.035) Urine Protein 2+ H (Negative) Urine Glucose (UA) Negative (Negative) Urine Ketones Negative (Negative) Urine Blood Large H (Negative) Urine Nitrite Negative (Negative) Urine Bilirubin Negative (Negative) Urine Urobilinogen <2.0 (<2.0) mg/dL Ur Leukocyte Esterase Large H (Negative) Urine RBC >182 H (0-5) /hpf Urine WBC >182 H (0-5) /hpf Urine WBC Clumps Many H (None) /hpf Ur Squamous Epith Cells 3 (0-4) /hpf Urine Mucus Many H (None) /hpf Urine HCG, Qual Not Detected (Not Detectd) 12/13/20 Range/Units 12:30 WBC (3.8-10.6) k/uL RBC (3.80-5.40) m/uL Hgb (11.4-16.0) gm/dL Hct (34.0-46.0) % MCV (80.0-100.0) fL MCH (25.0-35.0) pg MCHC (31.0-37.0) g/dL RDW (11.5-15.5) % Plt Count (150-450) k/uL MPV Neutrophils % % Lymphocytes % % Monocytes % % Eosinophils % % Basophils % % Neutrophils # (1.3-7.7) k/uL Lymphocytes # (1.0-4.8) k/uL Monocytes # (0-1.0) k/uL Eosinophils # (0-0.7) k/uL Basophils # (0-0.2) k/uL Sodium 141 (137-145) mmol/L Potassium 4.1 (3.5-5.1) mmol/L Chloride 109 H (98-107) mmol/L Carbon Dioxide 25 (22-30) mmol/L Anion Gap 7 mmol/L BUN 11 (7-17) mg/dL Creatinine 0.68 (0.52-1.04) mg/dL Est GFR (CKD-EPI)AfAm >90 (>60 ml/min/1.73 sqM) Est GFR (CKD-EPI)NonAf >90 (>60 ml/min/1.73 sqM) Glucose 98 (74-99) mg/dL Calcium 9.4 (8.4-10.2) mg/dL Total Bilirubin 0.5 (0.2-1.3) mg/dL AST 24 (14-36) U/L ALT 11 (4-34) U/L Alkaline Phosphatase 47 (38-126) U/L Total Protein 7.3 (6.3-8.2) g/dL Albumin 4.6 (3.5-5.0) g/dL Amylase 80 (30-110) U/L Lipase 191 (23-300) U/L Urine Color Urine Appearance (Clear) Urine pH (5.0-8.0) Ur Specific [place] (1.001-1.035) Urine Protein (Negative) Urine Glucose (UA) (Negative) Urine Ketones (Negative) Urine Blood (Negative) Urine Nitrite (Negative) Urine Bilirubin (Negative) Urine Urobilinogen (<2.0) mg/dL Ur Leukocyte Esterase (Negative) Urine RBC (0-5) /hpf Urine WBC (0-5) /hpf Urine WBC Clumps (None) /hpf Ur Squamous Epith Cells (0-4) /hpf Urine Mucus (None) /hpf Urine HCG, Qual (Not Detectd) Disposition Clinical Impression: Urinary tract infection Disposition: HOME SELF-CARE Condition: Stable Instructions (If sedation given, give patient instructions): Urinary Tract Infection in Women (ED) Additional Instructions: Please return to the Emergency Department if symptoms worsen or any other concerns. Follow-up with primary care in the next 3-5 days. Take antibiotics as prescribed until complete. Increase oral fluids, can drink hemorrhages to help with symptom control. Is patient prescribed a controlled substance at d/c from ED?: No Referrals: Nader Paula MD [Primary Care Provider] - 1-2 days Time of Disposition: 13:37
[2020-12-13 12:52] LABS: Basophils % (A) 0 %; Eosinophils # (A) 0.1 k/uL (0-0.7); Eosinophils % (A) 1 %; HCT 39.9 % (34.0-46.0); HGB 13.9 gm/dL (11.4-16.0); Lymphocytes % (A) 12 %; MCH 29.8 pg (25.0-35.0); MCHC 34.9 g/dL (31.0-37.0); MCV 85.5 fL (80.0-100.0); Mean Platelet Volume 8.3; Monocytes # (A) 0.3 k/uL (0-1.0); Monocytes % (A) 4 %; Neutrophils # (A) 7.1 k/uL (1.3-7.7); Neutrophils % (A) 83 %; Platelet Count 219 k/uL (150-450); RBC 4.67 m/uL (3.80-5.40); RDW 12.7 % (11.5-15.5); WBC 8.5 k/uL (3.8-10.6)
[2020-12-13 13:04] LABS: Appearance,Urine Turbid (Clear); Bilirubin,Urine Negative (Negative); Blood,Urine Large (Negative); Color,Urine Light Red; Glucose,Urine (UA) Negative (Negative); Ketones,Urine Negative (Negative); Leukocyte Esterase,Urine Large (Negative); Mucus,Urine Many /hpf; Nitrite,Urine Negative (Negative); PH, Urine 5.5 (5.0-8.0); Protein,Urine 2+ (Negative); RBC,Urine >182 /hpf (0-5); Specific Gravity,Urine 1.025 (1.001-1.035); Squamous Epithelial Cell,Urine 3 /hpf (0-4); Urobilinogen,Urine <2.0 mg/dL (<2.0); WBC,Urine >182 /hpf (0-5)
[2020-12-13 13:06] LABS: ALT 11 U/L (4-34); AST 24 U/L (14-36); African American GFR (CKD) >90 (>60 ml/min/1.73 sqM); Albumin 4.6 g/dL (3.5-5.0); Alkaline Phosphatase 47 U/L (38-126); Amylase 80 U/L (30-110); Anion Gap 7 mmol/L; Blood Urea Nitrogen 11 mg/dL (7-17); Calcium 9.4 mg/dL (8.4-10.2); Carbon Dioxide 25 mmol/L (22-30); Chloride 109 mmol/L (98-107); Glucose 98 mg/dL (74-99); Lipase 191 U/L (23-300); Non-African American GFR(CKD) >90 (>60 ml/min/1.73 sqM); Potassium 4.1 mmol/L (3.5-5.1); Sodium 141 mmol/L (137-145); Total Bilirubin 0.5 mg/dL (0.2-1.3); Total Protein 7.3 g/dL (6.3-8.2)
--- NOTE | 2020-12-13 13:24 | XR ---
EXAMINATION TYPE: XR KUB DATE OF EXAM: 12/13/2020 1:14 PM CLINICAL HISTORY: Abdominal pain for 3 days. TECHNIQUE: Two Upright KUB images of the abdomen are obtained. COMPARISON: CT abdomen and pelvis February 26, 2019. FINDINGS: Gas in a nondistended stomach. Scattered gas is seen in non-distended small bowel loops in the pelvis. Gas and fecal material is seen in non-distended colon. Metallic IUD in the pelvis redemon strated. Left-sided pelvic phleboliths. No free air. Lung bases are clear. Transitional type vertebra l multiple surgical junction redemonstrated. IMPRESSION: Overall nonobstructive bowel gas pattern.
[2020-12-13 13:42] VITALS: BP 118/77; PULSE 98; RESP 20; TEMP 97.4
== END 2020-12-13 13:55 | disposition home or self-care (01) ==
LOC: EC 11:41
DX: N39.0 Urinary tract infection, site not specified (principal)
CPT/HCPCS: 36415; 80053; 82150; 83690; 85025; 81001; 81025; 87086; 74018; 99284; 96374; 96361; J1885

== ENCOUNTER 2021-06-21 16:17 | Emergency (ER) | payer OTHER ==
[~2021-06-21 16:17] MED LIST: ATROPINE SULFATE 0.1 MG/ML 10ML SYRINGE ONE; EPINEPHrine 10 ML SYRINGE (0.1 MG/ML) ONE; LIDOCAINE 2% SYG (PF) 100 MG/5 ML ONE; SODIUM BICARB 8.4% 50 ML SYR (1 MEQ/ML) ONE
[2021-06-21] MEDS ORDERED: SODIUM CHLORIDE 0.9% 1,000 ML IV STA (17:01)
[2021-06-21 17:12] LABS: Basophils % (A) 1 %; Eosinophils # (A) 0.1 k/uL (0-0.7); Eosinophils % (A) 1 %; HCT 39.6 % (34.0-46.0); HGB 12.8 gm/dL (11.4-16.0); Hypochromasia Slight; Lymphocytes # (A) 4.3 k/uL (1.0-4.8); Lymphocytes % (A) 73 %; MCH 31.3 pg (25.0-35.0); MCHC 32.4 g/dL (31.0-37.0); MCV 96.5 fL (80.0-100.0); Mean Platelet Volume 10.8; Monocytes # (A) 0.2 k/uL (0-1.0); Monocytes % (A) 3 %; Neutrophils # (A) 1.2 k/uL (1.3-7.7); Neutrophils % (A) 21 %; Platelet Count 172 k/uL (150-450); RDW 13.2 % (11.5-15.5); WBC 5.9 k/uL (3.8-10.6)
[2021-06-21] MEDS ORDERED: PIPERACILLIN-TAZOBACTAM 3.375 GM in SODIUM CHLORIDE 0.9% 100 ML IVPB STA (17:12)
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
[2021-06-21] MEDS ORDERED: EPINEPHrine 4 MG in DEXTROSE 5% IN WATER 250 ML IV ONE ×2 (17:15)
[2021-06-21 17:24] LABS: ALT 19 U/L (4-34); AST 48 U/L (14-36); Acetaminophen <10.0 ug/mL; African American GFR (CKD) >90 (>60 ml/min/1.73 sqM); Albumin 3.1 g/dL (3.5-5.0); Alcohol <10 mg/dL; Alkaline Phosphatase 26 U/L (38-126); Anion Gap 26 mmol/L; Blood Urea Nitrogen 11 mg/dL (7-17); Calcium 10.1 mg/dL (8.4-10.2); Carbon Dioxide 12 mmol/L (22-30); Chloride 99 mmol/L (98-107); Glucose 221 mg/dL (74-99); Non-African American GFR(CKD) >90 (>60 ml/min/1.73 sqM); Salicylate <1.0 mg/dL; Sodium 137 mmol/L (137-145); Total Protein 5.6 g/dL (6.3-8.2)
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
[2021-06-21 17:36] LABS: Potassium 4.5 mmol/L (3.5-5.1)
[2021-06-21 17:39] LABS: ABG Oxygen Saturation 74.1 % (94-97); ABG PCO2 60 mmHg (35-45); ABG PO2 80 mmHg (83-108); ABG TCO2 8 mmol/L (19-24); Allen Test Performed? Yes
[2021-06-21] MEDS ORDERED: DEXTROSE 5% IN WATER 1,000 ML with SODIUM BICARB (1 MEQ/ML) 150 ML IV SCH (17:45)
[2021-06-21 17:57] LABS: INR 1.4 (<1.2); Partial Thromboplastin Time 46.7 sec (22.0-30.0); Prothrombin Time 14.1 sec (9.0-12.0)
[2021-06-21] MEDS: SODIUM BICARB 8.4% 50 ML SYR (1 MEQ/ML) IV STA ×2 (18:02→22:45)
[2021-06-21] MEDS ORDERED: SODIUM BICARB 8.4% 50 ML SYR (1 MEQ/ML) IV STA ×2 (18:04)
[2021-06-21 18:33] LABS: Amphetamine Screen,Urine Detected (NotDetected); Barbiturate Screen,Urine Not Detected (NotDetected); Benzodiazepines Screen,Urine Not Detected (NotDetected); Cocaine Screen,Urine Detected (NotDetected); Methadone Screen, Urine Not Detected (NotDetected); Opiate Screen,Urine Not Detected (NotDetected); Oxycodone Screen, Urine Not Detected (NotDetected); Phencyclidine Screen,Urine Not Detected (NotDetected); Tricyclic Antidepressant,Urine Not Detected (NotDetected); Urn Cannabinoid Scrn Not Detected (NotDetected)
[2021-06-21] MEDS ORDERED: FUROSEMIDE 10 MG/ML 4 ML VIAL IV STA (18:35)
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
[2021-06-21] MEDS ORDERED: NALOXONE 0.4 MG/ML 1 ML VIAL IV PRN (18:38)
[2021-06-21] MEDS ORDERED: SODIUM CHLORIDE 0.9% 1,000 ML IV SCH (18:45)
[2021-06-21] MEDS ORDERED: PANTOPRAZOLE 40 MG/10 ML VIAL IVP SCH (19:15)
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
[2021-06-21] MEDS ORDERED: MIDAZOLAM 1 MG/ML 5 ML VIAL IV STA (19:56)
--- NOTE | 2021-06-21 20:28 | XR ---
EXAMINATION TYPE: XR chest 1V portable DATE OF EXAM: 06/21/2021 COMPARISON: Same day chest radiograph HISTORY: O2 sats dropping. TECHNIQUE: Single frontal view of the chest is obtained. FINDINGS: Endotracheal tube over the mid trachea. Gastric tube coursing below the diaphragm with the tip not imaged. Diffuse patchy and hazy opacity bilaterally. Cardiomediastinal silhouette is within normal limits. IMPRESSION: 1. Diffuse airspace disease bilaterally. 2. Stable lines and tubes.
[2021-06-21] MEDS ORDERED: HEPARIN SODIUM,PORCINE/PF 5,000 UNIT/0.5 ML SYRINGE SQ SCH (21:00)
[2021-06-21 21:21] LABS: ABG Base Excess -19.7 mmol/L; ABG HCO3 13 mmol/L (21-25); ABG PCO2 60 mmHg (35-45); ABG PO2 61 mmHg (83-108); ABG TCO2 15 mmol/L (19-24); Allen Test Performed? Yes
[2021-06-21 21:24] LABS: ABG PH 6.93 (7.35-7.45)
[2021-06-21 21:40] LABS: ABG Base Excess 31.9 mmol/L; ABG HCO3 6 mmol/L (21-25); ABG PH <6.80 (7.35-7.45)
[2021-06-21 22:05] VITALS: TEMP 95.4
[2021-06-22] MEDS ORDERED: PIPERACILLIN-TAZOBACTAM 3.375 GM in SODIUM CHLORIDE 0.9% 100 ML IVPB SCH ×2
[2021-06-22 00:12] VITALS: BP 108/62
[2021-06-22 02:32] VITALS: PULSE 0; RESP 0
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
== END 2021-06-21 23:32 | disposition expired ==
LOC: EDBD → EC 16:17 → MERGE 18:38 → UNDOADMIN 18:38 → 2SICU 18:38 → UNDODISIN 06-22 05:02
DX: I49.01 Ventricular fibrillation (principal); R40.20 Unspecified coma; T75.1XXA Unspecified effects of drowning and nonfatal submersion, initial encounter; Z99.11 Dependence on respirator [ventilator] status; E87.2 Acidosis; G93.1 Anoxic brain damage, not elsewhere classified; S27.301A Unspecified injury of lung, unilateral, initial encounter; R57.8 Other shock; T68.XXXA Hypothermia, initial encounter; T17.910A Gastric contents in respiratory tract, part unspecified causing asphyxiation, initial encounter; I46.8 Cardiac arrest due to other underlying condition; I48.91 Unspecified atrial fibrillation; Y21.9XXA Unspecified drowning and submersion, undetermined intent, initial encounter; Y93.89 Activity, other specified; Y92.9 Unspecified place or not applicable; X31.XXXA Exposure to excessive natural cold, initial encounter; R23.0 Cyanosis; F15.10 Other stimulant abuse, uncomplicated; F14.90 Cocaine use, unspecified, uncomplicated
CPT/HCPCS: 31500; 96360; 96365; 96375; 99291; 99292; 36556; 36415; 94002; 93005; 86900; 86901; 80053; 82805; 83605; 84484; 85025; 85610; 85730; 86850; 81025; 80306; 80143; 80179; 72170; 71045; 72125; 70450; G0480; J0171 ×2; J2543; J1940; J2001; J0461; J2250; 80320; 99285